=== PATIENT | male | born 1965 | race Caucasian/White ===

== ENCOUNTER 2023-06-07 07:30 | Outpatient (RCR) | payer BC, SELFPAY | END 2023-08-30 10:39 | disposition home or self-care (01) | PROVIDERS: PCP Family Medicine; Visit Provider Family Medicine | DX: I87.2 Venous insufficiency (chronic) (peripheral) (principal); I89.0 Lymphedema, not elsewhere classified; Z51.89 Encounter for other specified aftercare | CPT/HCPCS: 97110; 97140; 97166; 97535; X5282 ==

== ENCOUNTER 2023-09-08 08:19 | Emergency (ER) | payer BC, SELFPAY ==
[2023-09-08] VITALS (15 sets, daily range): BP systolic 125–156; BP diastolic 58–97; PULSE 40–86; RESP 16; TEMP 36.7; O2SAT 91–99; BMI 46.9
--- NOTE | 2023-09-08 08:21 | ED.GENADULT ---
HPI - General Adult General Time Seen by Provider: 08:22 Date Seen: 09/08/23 Chief complaint: Arrhythmia/Palpitations Stated complaint: irregular heart rate Time Seen by Provider: 09/08/23 08:21 Source: patient Mode of arrival: ambulatory Limitations: no limitations History of Present Illness HPI narrative: Geovani is a 57-year-old male with hypertension, depression anxiety presents emergency department via private car and significant other with with palpitations and arrhythmia. patient states over the last 2 weeks he has had intermittent palpitations, episodes would occur spontaneously, while at rest or exertion. patient did not sleep well last night due to these palpitations, he had readings of his heart rate down to 39, it feels like butterflies in his chest, he denies any shortness of breath or chest pain, denies any lightheadedness or dizziness, patient denies any recent illness, fevers or chills, he has been eating and drinking normally. no nausea vomiting or abdominal pain, normal urinary and bowel habits. no history of any heart failure or TX in the past. patient is on Effexor, allopurinol, was on spironolactone and amlodipine but stop the medicine because side effects causes palpitations, he is also on chlorothiadone, this is for his lower extremity edema but no history of any heart failure. Patient states he has been eating and drinking normally, denies any dehydration. No alcohol use. Patient has lost about 60 lb over the last 6-7 months. no other concerns at this time. Related Data Home Medications Medication Instructions Recorded Confirmed allopurinol 300 mg tablet 300 mg PO DAILY 09/08/23 09/08/23 chlorthalidone 25 mg tablet 25 mg PO DAILY 09/08/23 09/08/23 venlafaxine 75 mg capsule,extended 75 mg PO DAILY 09/08/23 09/08/23 release 24 hr Previous Rx's Medication Instructions Recorded metoprolol tartrate 25 mg tablet 25 mg PO BID #30 tabs 09/08/23 Allergies Allergy/AdvReac Type Severity Reaction Status Date / Time fluoxetine [From Prozac] Allergy Intermediate rash Verified 09/08/23 08:24 Review of Systems Status of ROS: Reports: 10 or more systems reviewed and unremarkable except as noted in History and below PFSH PFS Social History Smoking Status: Never smoker Do you use any of these nicotine containing products: None Second hand tobacco smoke exposure: No How often do you have a drink containing alcohol: never AUDIT-C Alcohol total score: 0 Non-prescribed substance use: denies use service: No Exam Narrative: Exam Narrative: General: no obvious distress sitting comfortably HEENT: Neck, supple, no JVD, pupils equal round reactive to light, oropharynx clear and moist heart: normal sinus rhythm S1-S2 lungs: clear to auscultation bilaterally abdomen: obese, soft, bowel sounds present lower extremity: mild +1 pitting edema lower extremities Neuro: alert awake and oriented x3 Const: Vital Signs, click to edit/add: Vital Signs - 24 hr 09/08/23 08:24 09/08/23 08:25 09/08/23 08:28 Temperature 98.1 F Pulse Rate 85 67 Pulse Rate [Pulse Oximeter] 73 Respiratory Rate 16 Blood Pressure 156/97 H Blood Pressure [Le ft Forearm] 156/97 H Pulse Oximetry 98 97 98 Oxygen Delivery Me thod Room Air 09/08/23 08:30 09/08/23 08:49 09/08/23 09:00 Temperature Pulse Rate 77 86 68 Pulse Rate [Pulse Oximeter] Respiratory Rate Blood Pressure Blood Pressure [Le ft Forearm] Pulse Oximetry 98 95 97 Oxygen Delivery Me thod 09/08/23 09:02 09/08/23 09:03 09/08/23 09:15 Temperature Pulse Rate 63 52 L 43 L Pulse Rate [Pulse Oximeter] Respiratory Rate Blood Pressure 125/77 Blood Pressure [Le ft Forearm] Pulse Oximetry 98 98 97 Oxygen Delivery Me thod 09/08/23 09:30 09/08/23 09:45 09/08/23 10:00 Temperature Pulse Rate 40 L 41 L 76 Pulse Rate [Pulse Oximeter] Respiratory Rate Blood Pressure Blood Pressure [Le ft Forearm] Pulse Oximetry 91 97 98 Oxygen Delivery Me thod 09/08/23 10:02 09/08/23 10:15 Temperature Pulse Rate 64 70 Pulse Rate [Pulse Oximeter] Respiratory Rate Blood Pressure 126/58 L Blood Pressure [Le ft Forearm] Pulse Oximetry 99 99 Oxygen Delivery Me thod Course Course ED Course: 8:30 AM: AIDET performed, vitals are stable at this time, workup will include IV peripheral, 0.9 normal saline bolus, will obtain EKG, CBC, TSH, point of care troponin, BNP, magnesium, CMP, urinalysis, imaging including XR chest two views, differential diagnosis include but not limited to psychosocial stress, thyroid abnormalities, congestive heart failure, supraventricular tachycardia, atrial fibrillation, ventricular tachycardia and ventricular fibrillation. This includes a life-threatening complications of heart failure, V-tach and VFib. Reevaluation(s) Time of Reevaluation #1: 09:45 Reevaluation #1: Spoke with Cardiology at [facility], recommendations were for a Holter monitor, 2-3 days, follow-up with primary care provider, at that time consideration were to start metoprolol tartrate 25 mg b.i.d., after results of the Holter monitor. EKG showed a sinus rhythm with frequent premature ventricular complexes, right bundle-branch block, T-wave abnormality, PVCs are new from previous. CBC showed no leukocytosis or anemia, comprehensive metabolic panel showed potassium 3.3 likely secondary due to his diuretic, he was supplemented with 40 mEq of potassium chloride tablet, imaging showed no acute cardiopulmonary process, troponin I was negative at 0.0, TSH low at 0.015 is likely contributing to his symptoms, he does have an appointment with his primary care provider tomorrow, Holter monitor was order and placed, d patient wished to start metoprolol tartrate 25 mg b.i.d, in addition to his chlorthalidone, or hold his amlodipine and spironolactone, reasons return were given. Vital Signs Vital signs: Initial Vital Signs Pulse Rate 85 09/08/23 08:24 Pulse Oximetry 98 09/08/23 08:24 Vital Signs Pulse Rate 85 09/08/23 08:24 Pulse Oximetry 98 09/08/23 08:24 Temperature 98.1 F 09/08/23 08:25 Pulse Rate 70 09/08/23 10:15 Respiratory Rate 16 09/08/23 08:25 Blood Pressure 126/58 L 09/08/23 10:02 Pulse Oximetry 99 09/08/23 10:15 Oxygen Delivery Method Room Air 09/08/23 08:25 Medications Administered Medications: Discontinued Medications Generic Name Dose Route Start Last Admin Trade Name Freq PRN Reason Stop Dose Admin Sodium Chloride 1,000 mls @ 1,000 mls/hr 09/08/23 08:37 09/08/23 09:51 0.9 % Sodium Chloride 1000 Ml IV 09/08/23 09:36 Infused .Q1H ANTOINE Infusion Potassium Chloride 40 meq 09/08/23 09:30 09/08/23 09:33 Potassium Chloride 10 Meq Capsule Er PO 09/08/23 09:31 40 meq ONCE ONE Administration Medical Decision Making Lab Data Labs: Lab Results 09/08/23 09/08/23 09/08/23 Range/Units 08:30 08:30 08:36 WBC 6.15 (4.50-11.00) K/uL RBC 5.22 (4.30-5.90) m/uL Hgb 16.1 (13.5-17.5) gm/dL Hct 47.5 (37.0-53.0) % MCV 91 (80-100) fL MCH 31 (26-34) pg MCHC 34 (32-36) gm/dL RDW Coeff of Luli 14.1 (11.5-15.5) % Plt Count 214 (140-440) K/uL Neut % (Auto) 69.2 (42.0-72.0) % Lymph % (Auto) 20.8 (20-44) % [place] % (Auto) 8.1 (0.0-11.0) % Eos % (Auto) 1.1 (0.0-7.0) % Baso % (Auto) 0.5 (0.0-3.0) % Neut # (Auto) 4.25 (1.7-7.0) K/uL Lymph # (Auto) 1.28 (0.90-2.90) K/uL [place] # (Auto) 0.50 (0.00-0.90) K/UL Eos # (Auto) 0.07 (0.00-0.50) K/uL Baso # (Auto) 0.03 (0.00-0.30) K/uL Abs Immat Gran (auto) 0.02 (0.00-0.30) K/uL Imm/Tot Granulo (auto) 0.3 % Sodium 140 (135-149) mmol/L Potassium 3.3 L (3.6-5.1) mmol/L Chloride 99 (96-114) mmol/L Carbon Dioxide 33 H (20-32) mmol/L Anion Gap 8 (7-15) mEq/L BUN 22 (7-30) mg/dL Creatinine 1.0 (0.5-1.5) mg/dL Estimated Creat Clear 84.15 Estimated GFR 88 ml/min Glucose 106 (60-115) mg/dL Calcium 9.9 (8.4-10.6) mg/dL Magnesium 1.9 Cancelled (1.5-2.6) mg/dL Total Bilirubin 0.6 (0.1-1.5) mg/dL AST 25 (12-35) U/L ALT 31 (4-50) U/L Alkaline Phosphatase 92 (40-150) U/L NT-Pro-B Natriuret Pep 512 pg/mL Total Protein 7.8 (6.0-8.3) g/dL Albumin 4.4 (3.3-5.0) g/dL TSH < 0.015 L (0.270-4.20) uIU/mL POC Troponin I 0.00 L (0.01-0.04) ng/ml Discharge Plan Discharge Clinical Impression: Premature ventricular beats, Low TSH level Patient Disposition: Home, Self-Care Condition: Improved Instructions: Premature Ventricular Contractions (ED) Additional Instructions: To take metoprolol tartrate 25 mg twice daily, Holter monitor over the next 48 hours, follow-up with primary care provider as scheduled tomorrow in clinic. Return if worsening symptoms Activity Level: No Restrictions Prescriptions: New metoprolol tartrate 25 mg tablet 25 mg PO BID Qty: 30 0RF No Action venlafaxine 75 mg capsule,extended release 24hr 75 mg PO DAILY chlorthalidone 25 mg tablet 25 mg PO DAILY allopurinol 300 mg tablet 300 mg PO DAILY Follow Up/Referrals: Kai Munoz MD [Primary Care Provider] - Stand Alone Forms: [employer] Info Instructions
--- NOTE | 2023-09-08 08:36 | XR_ITS ---
Patient: TURNER TOUSSAINT Facility:?[facility] Patient ID:?[id number] Site Patient ID:?[id number] Site :?[id number] Study:?XRay-Chest 2 VIEW-09/08/2023 8:52:14 AM Ordering Physician:ASHOK Final Report: INDICATION: palpitations. TECHNIQUE: Chest 2 views. COMPARISON: None. FINDINGS: Cardiovascular and mediastinum: Heart size and vasculature are normal in caliber and appearance. Lungs and pleural spaces: Lungs are clear. No sign of infiltrate. No sign of pleural effusion. No pneumothorax. Bones and soft tissues: No significant findings. IMPRESSION: No evidence of acute cardiopulmonary process. Dictated by Fernando Rhoades MD @ 09/08/2023 9:01:10 AM Signed by:?Fernando Rhoades MD @09/08/2023 9:01:10 AM (Electronic Signature)
[2023-09-08 08:45] LABS: Hematocrit 47.5 % (37.0-53.0); Hemoglobin* 16.1 gm/dL (13.5-17.5); Lymphocytes Percent Auto 20.8 % (20-44); Mean Corpuscular HGB Conc 34 gm/dL (32-36); Mean Corpuscular Hemoglobin 31 pg (26-34); Mean Corpuscular Volume 91 fL (80-100); Neutrophils Percent Auto 69.2 % (42.0-72.0); Platelet Count* 214 K/uL (140-440); RDW Coefficient of Variation % 14.1 % (11.5-15.5); Red Blood Count 5.22 m/uL (4.30-5.90); White Blood Count* 6.15 K/uL (4.50-11.00)
[2023-09-08 08:46] LABS: Basophils Absolute Auto 0.03 K/uL (0.00-0.30); Basophils Percent Auto 0.5 % (0.0-3.0); Eosinophils Absolute Auto 0.07 K/uL (0.00-0.50); Eosinophils Percent Auto 1.1 % (0.0-7.0); Immature Granulocytes Abs Auto 0.02 K/uL (0.00-0.30); Immature Granulocytes Pct Auto 0.3 %; Lymphocytes Absolute Auto 1.28 K/uL (0.90-2.90); Monocytes Percent Auto 8.1 % (0.0-11.0); Neutrophils Absolute Auto 4.25 K/uL (1.7-7.0)
[2023-09-08 08:48] LABS: Slide Review Reflex No
[2023-09-08] MEDS: 0.9 % SODIUM CHLORIDE 1000 ml 1,000 ML IV (08:50)
[2023-09-08 09:15] LABS: Albumin* 4.4 g/dL (3.3-5.0); Chloride* 99 mmol/L (96-114); Potassium* 3.3 mmol/L (3.6-5.1); Sodium* 140 mmol/L (135-149)
[2023-09-08 09:17] LABS: Est. Creatinine Clearance* 84.15; Estimated Glomerular Filt Rate 88 ml/min
[2023-09-08 09:18] LABS: Alanine Aminotransferase* 31 U/L (4-50); Alkaline Phosphatase* 92 U/L (40-150); Anion Gap 8 mEq/L (7-15); Aspartate Amino Transferase* 25 U/L (12-35); Bilirubin Total* 0.6 mg/dL (0.1-1.5); Blood Urea Nitrogen* 22 mg/dL (7-30); Calcium* 9.9 mg/dL (8.4-10.6); Carbon Dioxide* 33 mmol/L (20-32); Glucose* 106 mg/dL (60-115); Magnesium* 1.9 mg/dL (1.5-2.6); Total Protein* 7.8 g/dL (6.0-8.3)
[2023-09-08 09:28] LABS: NT Pro B Type NatriureticPept* 512 pg/mL
[2023-09-08] MEDS: POTASSIUM CHLORIDE 10 MEQ CAPSULE ER 40 MEQ PO (09:33)
[2023-09-08 09:48] LABS: Thyroid Stimulating Hormone* < 0.015 uIU/mL (0.270-4.20)
== END 2023-09-08 11:21 | disposition home or self-care (01) ==
PROVIDERS: Emergency Provider Student in an Organized Health Care Education/Training Program; PCP Family Medicine
DX: I49.3 Ventricular premature depolarization (principal); R94.6 Abnormal results of thyroid function studies
CPT/HCPCS: 36415; 71046; 80053; 81001; 83735; 83880; 84443; 84484; 85025; 93005; 93225; 93226; 96360; 99283; 99284; 99285; A9270; J7030

== ENCOUNTER 2024-06-21 09:45 | Outpatient (RCR) | payer BC, SELFPAY | END 2024-10-19 23:59 | disposition home or self-care (01) | PROVIDERS: PCP Family Medicine; Visit Provider Podiatrist | DX: M77.41 Metatarsalgia, right foot (principal); Z51.89 Encounter for other specified aftercare | CPT/HCPCS: 97033; 97110; 97140; 97161; 97535 ==

== ENCOUNTER 2025-03-07 16:21 | Outpatient (CLI) | payer BC, SELFPAY | END 2025-03-07 16:22 | disposition home or self-care (01) | LOC: NFLDREF 03-13 20:36 | PROVIDERS: PCP Family Medicine; Referring Provider Family Medicine; Visit Provider Physician Assistant Surgical | DX: N30.01 Acute cystitis with hematuria (principal); B96.20 Unspecified Escherichia coli [E. coli] as the cause of diseases classified elsewhere | CPT/HCPCS: 87086 ==